=== PATIENT | male | born 1965 | race Caucasian/White ===

== ENCOUNTER 2023-12-16 07:10 | Day surgery (SDC) | payer MEDICAID, OTHER ==
[~2023-12-16] VITALS: Ht 170.2 cm; Wt 81.6 kg
[2023-12-16] MEDS ORDERED: MIDAZOLAM HCL 5 MG/5 ML VIAL ONE (07:59)
[2023-12-16] MEDS ORDERED: MEPERIDINE 100 MG INJ. 100 MG/ML VIAL ONE (08:00)
[2023-12-16 13:56] VITALS: O2SAT 97
[2023-12-16 15:29] VITALS: BP_SYST 132; PULSE 67; RESP 17
== END 2023-12-16 10:17 | disposition home or self-care (01) ==
LOC: SDS 07:10 → SMU 07:11 → SDS 10:17
PROVIDERS: ATTEND Internal Medicine
DX: R19.7 Diarrhea, unspecified (principal); D12.5 Benign neoplasm of sigmoid colon; D12.8 Benign neoplasm of rectum; K64.8 Other hemorrhoids; I10 Essential (primary) hypertension; E78.5 Hyperlipidemia, unspecified; Z90.49 Acquired absence of other specified parts of digestive tract; Z96.652 Presence of left artificial knee joint; Z98.890 Other specified postprocedural states; Z88.0 Allergy status to penicillin; Z79.899 Other long term (current) drug therapy; Z87.891 Personal history of nicotine dependence
CPT/HCPCS: 45385; 45380; 88305; 99152; G0378; J2250; J2175